=== PATIENT | male | born 1995 | race Hispanic/Latino ===

== ENCOUNTER 2016-07-16 09:07 | Emergency (ER) | payer OTHER ==
[2016-07-16 09:12] VITALS: BP 129/67; PULSE 60; RESP 18; TEMP 97.7; O2SAT 100
--- NOTE | 2016-07-16 09:53 | ED PDOC ---
HPI: Back Chief Complaint (Provider): lower back pain while driving and lifting History Per: Patient History/Exam Limitations: no limitations Onset/Duration Of Symptoms: Days, Waxing/Waning Current Symptoms Are (Timing): Still Present Quality Of Discomfort: Aching, Burning, Other Description Of Injury (Context): pinching pain Severity: Moderate Pain Scale Rating Of: 7 Previous Symptoms: Back Pain Associated Symptoms: None Exacerbating Factor(s): Turning, Movement, Sitting Additional History Per: Patient Additional Complaint(s): 21 y/o PMH intermittent asthma presenting with worsening of lower lumbar back pain which started approx 1 month ago. Patient is an [employer], states lower back pain is exacerbated by sitting for long drives and lifting boxes. No numbness, tingling, parasthesias, focal weakness, incontinence, erectile difficulties, no radiation of pain down limbs. PMD: none <Neal Perez - Last Filed: 07/16/16 11:27> Chief Complaint (Provider): Back pain <Gus Corbett - Last Filed: 07/16/16 11:42> Time Seen by Provider: 07/16/16 09:33 Chief Complaint (Nursing): Back Pain Past Medical History Vital Signs: Last Vital Signs Temp 97.7 F 07/16/16 09:11 Pulse 60 07/16/16 09:11 Resp 18 07/16/16 09:11 BP 129/67 07/16/16 09:11 Pulse Ox 100 07/16/16 09:11 - Medical History PMH: Asthma - Family History Family History: States: No Known Family Hx <Neal Perez - Last Filed: 07/16/16 11:27> Vital Signs: Last Vital Signs Temp 97.7 F 07/16/16 09:11 Pulse 60 07/16/16 09:11 Resp 07/16/16 09:11 BP 129/67 07/16/16 09:11 Pulse Ox 100 07/16/16 11:29 <Gus Corbett - Last Filed: 07/16/16 11:42> - Home Medications Home Medications: Ambulatory Orders Medication Instructions Recorded Clotrimazole/Betamethasone 15 gm EXT BID #2 tube 05/18/15 [Lotrisone] Ibuprofen [Motrin] 600 mg PO TID 7 Days 07/16/16 - Allergies Allergies/Adverse Reactions: Allergies Allergy/AdvReac Type Severity Reaction Status Date / Time No Known Allergies Allergy Verified 05/18/15 07:58 Supervising Attending Note - Supervising Attending Note The Documented history was done by the: Physician Telegraph Inspector The documented physical exam was done by the: Physician Telegraph Inspector The documented procedures were done by the: Physician Telegraph Inspector - Attestation: I have personally seen and examined this patient.: Yes I have fully participated in the care of the patient.: Yes I have reviewed all pertinent clinical information: Yes - Notes: Notes:: Back pain 1 month lifts boxes at work <Gus Corbett M - Last Filed: 07/16/16 11:42> Review of Systems ROS Statement: Except As Marked, All Systems Reviewed And Found Negative Constitutional: Positive for: Other Musculoskeletal: Positive for: Back Pain Neurological: Positive for: Other (No numbness, tingling, parasthesias, focal weakness, incontinence, erectile difficulties, no radiation of pain down limbs) . Negative for: Weakness, Numbness, Incoordination, Change in Speech, Confusion , Seizures, Altered Mental Status, Headache, Dizziness <Neal Perez F - Last Filed: 07/16/16 11:27> Physical Exam - Physical Exam Appears: Positive for: No Acute Distress Head Exam: Positive for: ATRAUMATIC Skin: Positive for: Normal Color, Warm Eye Exam: Positive for: EOMI, PERRL Neck: Positive for: Normal, Painless ROM Cardiovascular/Chest: Positive for: Regular Rate, Rhythm Respiratory: Positive for: Normal Breath Sounds Gastrointestinal/Abdominal: Positive for: Soft. Negative for: Tenderness, Distended, Guarding Male Genital Exam: Positive for: other Back: Positive for: Decreased ROM (pain on extension @ 15 degrees, pain on flexion @ 45 degrees), Muscle Spasm (L4-S1 paravertebral tenderness). 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 Negative for: Motor/Sensory Deficits, Facial Droop <Neal ePrez F - Last Filed: 07/16/16 11:27> - Physical Exam Back: Positive for: Other (mild tender across lower; straight leg test post b/l at 35*) <Gus Corbett M - Last Filed: 07/16/16 11:42> - ECG O2 Sat by Pulse Oximetry: 100 - Progress ED Course And Treament: 21 y/o with chronic worsening lower back pain 1. Lumbar back pain - toradol 30 mg IM - Lumbar radiographs: negative Re-evaluation Time: 11:27 Condition: Re-examined, Improved, Improving,but remains with symptoms <Neal Perez F - Last Filed: 07/16/16 11:27> - Progress ED Course And Treament: 1140: Feels much better. AAOx3. Pain improved. Fu with pcp. Ambulated with no issues. <Gus Corbett - Last Filed: 07/16/16 11:42> Disposition - Patient ED Disposition Is Patient to be Admitted: No - Disposition Disposition: Routine/Home Disposition Time: 11:29 <Neal Perez F - Last Filed: 07/16/16 11:27> - Patient ED Disposition Is Patient to be Admitted: No Counseled Patient/Family Regarding: Studies Performed, Diagnosis, Need For Followup, Rx Given - Disposition Disposition: Routine/Home Disposition Time: 11:41 <Gus Corbett - Last Filed: 07/16/16 11:42> - Clinical Impression Clinical Impression: Low back pain - Disposition Referrals: [facility] [Outside] - 07/17/16 Condition: STABLE Additional Instructions: Return if not better in 3 days. Prescriptions: Ibuprofen [Motrin] 600 mg PO TID 7 Days Instructions: Back Pain (ED) Forms: [facility] ED School/Work Excuse
--- NOTE | 2016-07-16 13:26 | RAD ---
PROCEDURE: Radiographs of the Lumbar Spine. HISTORY: back pain No antecedent history of trauma provided. COMPARISON: No prior. FINDINGS: BONES: Scoliosis without appreciable secondary degenerative change. No acute fractures DISC SPACES: Unremarkable. OTHER FINDINGS: None. IMPRESSION: No acute findings related to/accounting for the clinical presentation.
== END 2016-07-16 12:01 | disposition home or self-care (01) ==
LOC: H.ER 09:07
DX: M54.5 Low back pain (principal); X50.0XXA Overexertion from strenuous movement or load, initial encounter; Y99.0 Civilian activity done for income or pay
CPT/HCPCS: 72114; 96372; 99282; J1885